=== PATIENT | female | born 1995 | race Two or more races ===

== ENCOUNTER 2017-03-13 11:35 | Observation (INO) | payer MEDICAID ==
[~2017-03-13 11:35] MED LIST: PREN-153 OR
== END 2017-03-13 13:10 | disposition home or self-care (01) | DRG 566 ==
LOC: LDRP 11:35
PROVIDERS: ADMIT Obstetrics & Gynecology; ATTEND Obstetrics & Gynecology
DX: O26.893 Other specified pregnancy related conditions, third trimester (principal); R10.9 Unspecified abdominal pain; Z3A.35 35 weeks gestation of pregnancy
CPT/HCPCS: 59025; 81002; G0378

== ENCOUNTER 2017-04-07 06:37 | Inpatient (IN) | payer MEDICAID ==
[~2017-04-07] VITALS: Ht 30.5 cm; Wt 0.5 kg
[2017-04-07] MEDS: LACTATED RINGER'S 1,000 ML IV SCH ×2 (07:14→15:14)
[2017-04-07] MEDS ORDERED: LACT. RINGERS/OXYTOCIN 20UNITS 1,000 ML IV SCH ×2 (07:14→13:01)
[2017-04-07] MEDS ORDERED: WITCH HAZEL-GLYCERIN PAD TOP PRN (07:15)
[2017-04-07] MEDS ORDERED: LIDOCAINE 2%HCL (LOCAL ANESTH.) INJ 20ML MDV IJ ONE (07:15)
[2017-04-07] MEDS ORDERED: PHISODERM TOP SOLN 240ML BTL TOP PRN (07:15)
[2017-04-07] MEDS ORDERED: DERMOPLAST 60ML BOTTLE TOP PRN (07:15)
[2017-04-07] MEDS ORDERED: METHYLERGONOVINE MALEATE 0.2 MG/ML AMP IM PRN (07:15)
[2017-04-07] MEDS ORDERED: NALBUPHINE HCL 10 MG/1ml INJECTION IV PRN (07:15)
[2017-04-07 08:24] LABS: Basophils # (auto) 0 uL; Basophils % (auto) 0.2 % (0.0-2.0); Eosinophils # (auto) 0 uL; Eosinophils % (auto) 0.1 % (0.0-7.0); Hematocrit 32.7 % (36.0-46.0); Lymphocytes # (auto) 1.5 uL; Monocytes # (auto) 0.4 uL; Red Blood Cells 4.19 10^6/uL (4.0-5.20); White Blood Cell 8.8 10^3/uL (4.4-10.8)
[2017-04-07 08:25] LABS: Hemoglobin 10.4 g/dL (12.2-16.2); Lymphocytes % (auto) 16.6 % (10.0-50.0); Mean Corpuscular Hemoglobin 24.9 pg (28.0-32.0); Mean Corpuscular Hgb Conc. 31.9 g/dL (32.0-36.0); Monocytes % (auto) 4.9 % (0.0-12.0); Neutrophils # (auto) 6.9 uL; Neutrophils % (auto) 78.2 % (37.0-80.0); Nucleated Red Blood Cells % 0.2 %; Platelet Count (auto) 160 10^3/uL (140-450)
[2017-04-07 08:27] LABS: Red Cell Distribution Width 20.8 % (11.8-14.3)
[2017-04-07] MEDS ORDERED: FERR-20 PO (08:30)
[2017-04-07 08:34] LABS: INR 0.92 (0.9-1.15); Partial Thromboplastin Time 25.7 sec (22.64-33.71)
[2017-04-07 08:45] LABS: Albumin 2.5 g/dL (3.4-5.0); BUN/Creatinine Ratio 13.6; Calcium 8.5 mg/dL (8.5-10.1); Potassium 3.9 mmol/L (3.5-5.1)
[2017-04-07 08:48] LABS: Bilirubin, Total 0.4 mg/dL (0.2-1.0); Total Protein 6.4 g/dL (6.4-8.2)
[2017-04-07 08:53] LABS: Urine Bacteria NONE SEEN /hpf (None Seen); Urine Blood Negative /uL (Negative); Urine Specific Gravity 1.015 (1.001-1.035); Urine WBC 7 /hpf (0 - 5)
[2017-04-07] MEDS ORDERED: PROMETHAZINE HCL 25 MG/ML 1ML IV PRN (09:00)
[2017-04-07] MEDS ORDERED: ePHEDrine SULFATE 50 MG/ML AMP IV ONE (09:30)
[2017-04-07] MEDS ORDERED: fentaNYL W ROPIVACAINE 150 ML EPI SCH (09:30)
[2017-04-07] MEDS ORDERED: fentaNYL W ROPIVACAINE 150 ML EPI ONE (09:30)
[2017-04-07] MEDS ORDERED: LIDOCAINE HCL 2 %PF INJ 10ML AMP IJ ONE (09:31)
[2017-04-07] MEDS ORDERED: ePHEDrine SULFATE 50 MG/ML AMP ONE (09:31)
[2017-04-07] MEDS ORDERED: fentaNYL CITRATE 100 MCG/2 ML VL ONE (09:31)
[2017-04-07] MEDS ORDERED: LACT. RINGERS/OXYTOCIN 20UNITS 500 ML IV ONE (12:01)
[2017-04-07] MEDS ORDERED: IBUPROFEN 600 MG TAB PO PRN (12:15)
[2017-04-07 15:37] VITALS: BP 109/60
[2017-04-07 19:30] VITALS: BP 111/67
[2017-04-07] MEDS: ACETAMINOPHEN 325 MG TAB PO PRN (22:39)
[2017-04-08] VITALS: BP 109/59
[2017-04-08] MEDS: ACETAMINOPHEN 325 MG TAB PO PRN ×2 (03:19→08:00)
[2017-04-08 04:00] VITALS: BP 102/50
[2017-04-08 08:06] VITALS: BP 97/56
[2017-04-08 12:19] VITALS: BP 102/65
== END 2017-04-08 12:55 | disposition home or self-care (01) | DRG 560 ==
LOC: OBSVTOIN 06:37 → LDRP 06:37
PROVIDERS: ADMIT Obstetrics & Gynecology; ATTEND Obstetrics & Gynecology
PROC: 10E0XZZ Delivery of Products of Conception, External Approach (ICD-10-PCS; principal; 2017-04-07)
PROC: 3E0R3BZ Introduction of Anesthetic Agent into Spinal Canal, Percutaneous Approach (ICD-10-PCS; 2017-04-07)
PROC: 00HU33Z Insertion of Infusion Device into Spinal Canal, Percutaneous Approach (ICD-10-PCS; 2017-04-07)
PROC: 0HQ9XZZ Repair Perineum Skin, External Approach (ICD-10-PCS; 2017-04-07)
PROC: 0UQMXZZ Repair Vulva, External Approach (ICD-10-PCS; 2017-04-07)
DX: O69.81X0 Labor and delivery complicated by cord around neck, without compression, not applicable or unspecified (principal); O71.82 Other specified trauma to perineum and vulva; Z37.0 Single live birth; Z3A.38 38 weeks gestation of pregnancy
CPT/HCPCS: 36415; 51702; 59025; 59409; 62282; 80053; 81001; 81002; 85025; 85610; 85730; 86850; 86900; 86901; 94760; 96361; 96365; 96366; 96374; J2590; J3010

== ENCOUNTER 2020-06-12 13:45 | Observation (INO) | payer MEDICAID ==
[~2020-06-12] VITALS: Ht 152.4 cm; Wt 78.9 kg
[~2020-06-12 13:45] MED LIST changes: +FERR-20 PO; -PREN-153 OR; +PREN1TAB71 OR
== END 2020-06-12 16:02 | disposition home or self-care (01) ==
LOC: LDRP 13:45
PROVIDERS: ADMIT Specialist; ATTEND Specialist
DX: O42.92 Full-term premature rupture of membranes, unspecified as to length of time between rupture and onset of labor (principal); Z3A.39 39 weeks gestation of pregnancy
CPT/HCPCS: 59025; 81002; 84112; 94760; G0378; Q0114

== ENCOUNTER 2020-06-19 02:05 | Inpatient (IN) | payer MEDICAID ==
[2020-06-19] VITALS (9 sets, daily range): BP systolic 98–139; BP diastolic 51–74
[~2020-06-19] VITALS: Ht 152.4 cm; Wt 79.4 kg
[2020-06-19] MEDS ORDERED: DERMOPLAST 60ML BOTTLE TOP PRN (03:00)
[2020-06-19] MEDS ORDERED: BUTORPHANOL TARTRATE 2 MG/1 ML VIAL IV PRN ×2 (03:00)
[2020-06-19] MEDS ORDERED: PENICILLIN G POT 5MIL/D5 50ML 50 ML IV ONE (03:00)
[2020-06-19] MEDS ORDERED: LIDOCAINE 2%HCL (LOCAL ANESTH.) INJ 20ML MDV IJ ONE (03:00)
[2020-06-19] MEDS ORDERED: PHISODERM TOP SOLN 240ML BTL TOP PRN (03:00)
[2020-06-19] MEDS ORDERED: WITCH HAZEL-GLYCERIN PAD TOP PRN (03:00)
[2020-06-19] MEDS ORDERED: LACTATED RINGER'S 1,000 ML IV ONE (03:00)
[2020-06-19] MEDS ORDERED: PROMETHAZINE HCL 25 MG/ML 1ML IM PRN (03:00)
[2020-06-19] MEDS: LACTATED RINGER'S 1,000 ML IV SCH ×2 (03:20→16:34)
[2020-06-19 03:42] LABS: Eosinophils # (auto) 0 10 ^3/uL (0-0.8); Eosinophils % (auto) 0.3 % (0.0-7.0); Lymphocytes % (auto) 28.8 % (10.0-50.0); Neutrophils # (auto) 5.2 10 ^3/uL (1.6-8.6); Red Blood Cells 4.52 10^6/uL (4.0-5.20)
[2020-06-19 03:44] LABS: Basophils # (auto) 0 10 ^3/uL (0-0.2); Basophils % (auto) 0.2 % (0.0-2.0); Hematocrit 36.9 % (36.0-46.0); Hemoglobin 11.9 g/dL (12.2-16.2); Lymphocytes # (auto) 2.3 10 ^3/uL (0.4-5.4); Mean Corpuscular Hemoglobin 26.2 pg (28.0-32.0); Mean Corpuscular Hgb Conc. 32.1 g/dL (32.0-36.0); Mean Corpuscular Volume 81.6 fL (80.0-100.0); Monocytes # (auto) 0.5 10 ^3/uL (0-1.3); Monocytes % (auto) 6.4 % (0.0-12.0); Neutrophils % (auto) 64.3 % (37.0-80.0); Nucleated Red Blood Cells % 0.1 %; Platelet Count (auto) 141 10^3/uL (140-450); Red Cell Distribution Width 21.6 % (11.8-14.3); White Blood Cell 8.1 10^3/uL (4.4-10.8)
[2020-06-19 03:57] LABS: INR 0.92 (0.9-1.15); Partial Thromboplastin Time 21.7 sec (23.0-31.2)
[2020-06-19 03:57] LABS: Urine Bacteria FEW /hpf (None Seen); Urine Blood Negative /uL (Negative); Urine Specific Gravity 1.007 (1.001-1.035); Urine WBC <1 /hpf (0 - 5)
[2020-06-19 03:58] LABS: Albumin 2.7 g/dL (3.4-5.0); Calcium 8.7 mg/dL (8.5-10.1); Potassium 3.9 mmol/L (3.5-5.1)
[2020-06-19 03:59] LABS: Alcohol, Urine < 3.0 mg/dL (0-10); Amphetamine Screen, Urine NEGATIVE (NEGATIVE); Barbiturate Scree,Urine NEGATIVE (NEGATIVE); Benzodiazephine Screen, Urine NEGATIVE (NEGATIVE); Cannabinoid Screen, Urine NEGATIVE (NEGATIVE); Cocaine Screen, Urine NEGATIVE (NEGATIVE); Opiate Scree,Urine NEGATIVE (NEGATIVE); Phencyclidine Screen, Urine NEGATIVE (NEGATIVE)
[2020-06-19 04:02] LABS: Bilirubin, Total 0.3 mg/dL (0.2-1.0); Total Protein 6.9 g/dL (6.4-8.2)
[2020-06-19] MEDS ORDERED: LACT. RINGERS/OXYTOCIN 20UNITS 1,000 ML IV ONE (04:30)
[2020-06-19] MEDS ORDERED: LACT. RINGERS/OXYTOCIN 20UNITS 1,000 ML IV SCH (05:30)
[2020-06-19] MEDS ORDERED: IBUPROFEN 600 MG TAB PO PRN (05:30)
[2020-06-19] MEDS ORDERED: PENICILLIN G POTASSIUM 2,500,000 UNITS in D5W 5% 50 ML IV SCH (07:00)
[2020-06-19] MEDS: ONDANSETRON HCL 4 MG/2 ML VIAL IV PRN ×2 (07:12→12:57)
[2020-06-19] MEDS: ACETAMINOPHEN 325 MG TAB PO PRN ×2 (11:41→23:27)
[2020-06-19] MEDS ORDERED: HYDROcodone-ACET 5/325MG TAB PO PRN (17:30)
[2020-06-19 18:49] LABS: Basophils # (auto) 0 10 ^3/uL (0-0.2); Basophils % (auto) 0.2 % (0.0-2.0); Eosinophils # (auto) 0 10 ^3/uL (0-0.8); Monocytes # (auto) 0.5 10 ^3/uL (0-1.3); Neutrophils # (auto) 6.9 10 ^3/uL (1.6-8.6); Nucleated Red Blood Cells % 0.3 %
[2020-06-19 18:51] LABS: Eosinophils % (auto) 0.2 % (0.0-7.0); Hematocrit 37.1 % (36.0-46.0); Lymphocytes # (auto) 1.5 10 ^3/uL (0.4-5.4); Lymphocytes % (auto) 16.8 % (10.0-50.0); Mean Corpuscular Hemoglobin 26.5 pg (28.0-32.0); Mean Corpuscular Hgb Conc. 32.3 g/dL (32.0-36.0); Monocytes % (auto) 5.9 % (0.0-12.0); Neutrophils % (auto) 76.9 % (37.0-80.0); Platelet Count (auto) 165 10^3/uL (140-450); Red Blood Cells 4.53 10^6/uL (4.0-5.20)
[2020-06-19 19:07] LABS: Red Cell Distribution Width 21.6 % (11.8-14.3)
[2020-06-19 19:19] LABS: Albumin 2.4 g/dL (3.4-5.0); Calcium 8.3 mg/dL (8.5-10.1); Potassium 3.7 mmol/L (3.5-5.1)
[2020-06-19 19:23] LABS: Bilirubin, Total 0.2 mg/dL (0.2-1.0); Total Protein 6.3 g/dL (6.4-8.2)
[2020-06-20 03:00] VITALS: BP 92/51
[2020-06-20 06:07] LABS: RPR Non Reactive (Non Reactive)
[2020-06-20] MEDS ORDERED: ACET325T10 PO (06:50)
[2020-06-20] MEDS ORDERED: IBUP600T28 PO (06:50)
[2020-06-20] MEDS ORDERED: DOCU-94 PO (06:50)
[2020-06-20 07:05] VITALS: BP 106/55
== END 2020-06-20 09:15 | disposition home or self-care (01) | DRG 560 ==
LOC: OBSVTOIN 02:05 → LDRP 02:05
PROVIDERS: ADMIT Specialist; ATTEND Specialist
PROC: 10E0XZZ Delivery of Products of Conception, External Approach (ICD-10-PCS; principal; 2020-06-19)
DX: O48.0 Post-term pregnancy (principal); O69.81X0 Labor and delivery complicated by cord around neck, without compression, not applicable or unspecified; O90.89 Other complications of the puerperium, not elsewhere classified; Z20.822 Contact with and (suspected) exposure to COVID-19; Z37.0 Single live birth; Z3A.40 40 weeks gestation of pregnancy; R11.2 Nausea with vomiting, unspecified
CPT/HCPCS: 36415; 59025; 59409; 76705; 80053; 80307; 81001; 81002; 85025; 85610; 85730; 86592; 86850; 86900; 86901; 87426; 94760; 94762; 96360; 96361; 96365; G0378; J2405; J2540; J2590; J7060